=== PATIENT | female | born 1980 | race Hispanic/Latino ===

== ENCOUNTER → 2023-10-09 | Outpatient (CLI) | payer MEDICARE ==
[2023-10-09 22:00] VITALS: PULSE 84; RESP 20
[2023-10-09 22:30] VITALS: PULSE 74; RESP 20
[2023-10-09 23:00] VITALS: PULSE 74; RESP 22
[2023-10-09 23:30] VITALS: PULSE 78; RESP 26
[2023-10-10] VITALS (10 sets, daily range): PULSE 64–78; RESP 14–26
== END | disposition home or self-care (01) ==
LOC: SLP 20:30
PROVIDERS: ATTEND Physician Assistant
DX: G47.33 Obstructive sleep apnea (adult) (pediatric) (principal)
CPT/HCPCS: 95810

== ENCOUNTER 2024-06-23 09:22 | Emergency (ER) | payer MEDICARE ==
[~2024-06-23] VITALS: Ht 160 cm; Wt 111.6 kg
[2024-06-23 11:32] LABS: POTASSIUM 3.5 mmol/L (3.5-5.1)
[2024-06-23 11:39] LABS: BASOPHILS # (AUTO) 0.06 K/uL (0.00-0.20); BASOPHILS % (AUTO) 0.4 % (0.0-5.0); EOSINOPHILS # (AUTO) 0.12 K/uL (0.00-0.70); EOSINOPHILS % (AUTO) 0.8 % (0.0-8.0); HEMATOCRIT 40.3 % (36-48); IMMATURE GRANULOCYTE ABSOLUTE 0.09 K/uL (0-1); LYMPHOCYTES # (AUTO) 1.7 K/uL (1.0-4.8); LYMPHOCYTES % (AUTO) 11.8 % (21.0-51.0); MEAN CORPUSCULAR HEMOGLOBIN 26.5 pg (27.0-33.0); MEAN CORPUSCULAR HGB CONC 31.3 g/dL (32.0-36.0); MEAN CORPUSCULAR VOLUME 84.8 fL (79-99); MONOCYTES # (AUTO) 0.7 K/uL (0.1-1.0); MONOCYTES % (AUTO) 4.6 % (3.0-13.0); NEUTROPHILS # (AUTO) 11.8 K/uL (1.8-7.7); NEUTROPHILS % (AUTO) 81.8 % (40.0-77.0); PLATELET COUNT (AUTO) 409 K/uL (130-400); RED BLOOD CELL COUNT(AUTO) 4.75 MIL/uL (4.00-5.50); RED CELL DISTRIBUTION WIDTH 14.4 % (11.0-15.5); WHITE BLOOD COUNT (AUTO) 14.4 K/uL (4.8-10.8)
[2024-06-23] MEDS: 0.9%NACL 1000ML 1,000 ML IV STA (13:51)
[2024-06-23] MEDS ORDERED: IOHEXOL 350 MG/ML 100ML INFUS..BTL IV ONE (13:56)
[2024-06-23 14:50] VITALS: BP 137/74; PULSE 87; RESP 18; TEMP 98.8; O2SAT 99
== END 2024-06-23 15:55 | disposition home or self-care (01) ==
LOC: EDH 09:22
DX: F41.9 Anxiety disorder, unspecified (principal); E11.9 Type 2 diabetes mellitus without complications; F31.9 Bipolar disorder, unspecified; I10 Essential (primary) hypertension; Z90.710 Acquired absence of both cervix and uterus; Z98.890 Other specified postprocedural states
CPT/HCPCS: 99285; 96360; 71270; 71045; 84484; 80048; 85025; 85378; 36415; 93005; J7030; Q9967